=== PATIENT | male | born 1960 | race Asian ===

== ENCOUNTER 2016-09-14 15:59 | Emergency (ER) | payer MEDICAID ==
[~2016-09-14] VITALS: Ht 160 cm; Wt 80.0 kg
[2016-09-14] MEDS ORDERED: METO50 PO (17:49)
[2016-09-14] MEDS ORDERED: RANI150T7 PO (17:49)
[2016-09-14 18:11] LABS: BASOPHILS % (AUTO) 2.2 % (0.0-2.0); EOSINOPHILS % (AUTO) 4.6 % (1.0-6.0); HEMATOCRIT 37.1 % (41-53); HEMOGLOBIN 12.1 g/dL (13.5-17.5); LYMPHOCYTES # (AUTO) 1.9 K/uL (1.0-4.8); LYMPHOCYTES % (AUTO) 32.8 % (22.0-44.0); MEAN CORPUSCULAR HEMOGLOBIN 36.8 pg (26.0-34.0); MEAN CORPUSCULAR HGB CONC 32.6 G/dL (31.0-37.0); MEAN CORPUSCULAR VOLUME 113 fL (80-100); MONOCYTES # (AUTO) 0.9 K/uL (0.1-1.0); MONOCYTES % (AUTO) 14.8 % (2.0-9.0); NEUTROPHILS # (AUTO) 2.7 K/uL (1.8-7.7); NEUTROPHILS % (AUTO) 45.6 % (40.0-70.0); PLATELET COUNT (AUTO) 203 K/uL (150-450); RED BLOOD CELL COUNT(AUTO) 3.29 MIL/uL (4.50-5.90); RED CELL DISTRIBUTION WIDTH 16.7 % (11.5-14.5); WHITE BLOOD COUNT (AUTO) 5.8 K/uL (4.5-11.0)
[2016-09-14 18:24] LABS: ANION GAP 5 mmol/L (8-16); CALCIUM, TOTAL 8.9 mg/dL (8.8-10.5); CARBON DIOXIDE 30 mmol/L (22-29); CHLORIDE 106 mmol/L (98-107); CREATININE 1.03 mg/dL (0.60-1.30); GLOMERULAR FILTR. RATE CALC > 60 mL/min (>60); POTASSIUM 3.8 mmol/L (3.5-5.1); SODIUM SERUM 141 mmol/L (136-145); UREA NITROGEN, BLOOD 9 mg/dL (7-18)
[2016-09-14 18:31] LABS: ALANINE AMINOTRANSFERASE 29 U/L (12-78); ALBUMIN 2.3 g/dL (3.4-5.0); ASPARTATE AMINOTRANSFERASE 67 U/L (15-37); BILIRUBIN,TOTAL 1.5 mg/dL (0.1-1.0); RBC MORPHOLOGY COMMENT ABNORMAL RBC MORPH; TOTAL PROTEIN, SERUM 7.5 g/dL (6.4-8.2)
[2016-09-14 20:50] LABS: B-TYPE NATRIURETIC PEPTIDE 482 pg/mL (0-100)
[2016-09-14 21:00] LABS: CREATINE KINASE MB 1.4 ng/mL (0-5); CREATINE KINASE, TOTAL 185 U/L (39-308)
[2016-09-14 22:43] VITALS: BP 151/79
== END 2016-09-14 22:45 | disposition home or self-care (01) ==
LOC: EMS 16:02
DX: R60.0 Localized edema (principal); K21.9 Gastro-esophageal reflux disease without esophagitis; I10 Essential (primary) hypertension
CPT/HCPCS: 93005; 93970; 99285